=== PATIENT | female | born 1975 | race African-American/Black ===

== ENCOUNTER 2023-09-14 16:45 | Outpatient (CLI) | payer BC, SELFPAY ==
--- NOTE | 2023-09-14 | MM_ITS ---
PROCEDURE INFORMATION: Exam: MG Bilateral Screening 3D Mammography Exam date and time: 09/14/2023 4:40 PM Age: 48 years old Clinical indication: Screening. No family history of breast cancer. TECHNIQUE: Imaging protocol: Bilateral Screening tomosynthesis and 2D mammography including computer-aided detection (CAD) when performed. COMPARISON: MG MM DIGITAL EDDY SCREENING 10/09/2021 3:42 PM FINDINGS: MAMMOGRAPHY: Breast composition: The breasts are almost entirely fatty. Mass: None. Architectural distortion: None. Calcifications: No suspicious calcifications. Asymmetric density: None. Skin thickening: None. Axillary adenopathy: None. IMPRESSION: No mammographic evidence of malignancy. Annual screening is recommended unless otherwise clinically indicated. ASSESSMENT: BI-RADS Category 1: Negative
== END 2023-09-14 23:59 | disposition home or self-care (01) ==
LOC: RAD 16:46
PROVIDERS: PCP Family Medicine; Visit Provider Family Medicine
DX: Z12.31 Encounter for screening mammogram for malignant neoplasm of breast (principal)
CPT/HCPCS: 77063; 77067

== ENCOUNTER 2023-12-03 16:50 | Emergency (ER) | payer BC, SELFPAY ==
[2023-12-03 17:08] VITALS: BP 175/100; PULSE 87; RESP 16; TEMP 36.8; O2SAT 97; BMI 41.5
--- NOTE | 2023-12-03 17:31 | XR_ITS ---
PROCEDURE INFORMATION: Exam: XR Chest Exam date and time: 12/03/2023 5:38 PM Age: 48 years old Clinical indication: Pain; Other: Chest; Additional info: R chest and scap pain TECHNIQUE: Imaging protocol: Radiologic exam of the chest. Views: 2 views. COMPARISON: CR XR SCAPULA RT 12/03/2023 5:35 PM FINDINGS: Lungs: Unremarkable. No consolidation. Pleural spaces: Unremarkable. No pleural effusion. No pneumothorax. Heart/Mediastinum: Unremarkable. No cardiomegaly. Bones/joints: Unremarkable. IMPRESSION: No acute findings.
--- NOTE | 2023-12-03 17:31 | XR_ITS ---
PROCEDURE INFORMATION: Exam: XR Right Scapula Exam date and time: 12/03/2023 5:35 PM Age: 48 years old Clinical indication: Pain; Shoulder; Right; Additional info: R scap and shoulder pain TECHNIQUE: Imaging protocol: Radiologic exam of the right scapula. Complete exam. COMPARISON: No relevant prior studies available. FINDINGS: Bones/joints: Osseous alignment is normal. No acute fracture. No significant arthritic change. Soft tissues: Normal. IMPRESSION: Negative right scapula
--- NOTE | 2023-12-03 17:38 | ED_ITS ---
Discharge Plan Disposition Patient Disposition: Home, Self-Care Prescriptions Prescriptions: New methocarbamol 750 mg tablet 1,500 mg PO TID 5 Days Qty: 30 0RF Referrals Follow up/Referrals: Gladis Ba APRN [Primary Care Provider] - See instructions Activity Restrictions/Add. Instructions Additional Instructions/Restrictions: Follow-up with your family doctor regarding this visit to the emergency department as needed. Take Tylenol 1000 mg every 6 hours (4 times daily) and ibuprofen 400 mg every 6 hours (4 times daily) as needed with food and water to prevent GI upset and kidney damage. Robaxin sent to pharmacy. Robaxin can cause you to feel drowsy. Do not drive, operate heavy machinery, or engage in any activity that may make you tired, fall asleep, and because harm to yourself or others while taking this medication. Clinical Impressions Clinical Impression: Acute myofascial pain, Left shoulder pain Instructions Patient Instructions: DI for Acute Abdominal Pain Discharge ED Provider: Nathaniel Saab General Adult HPI General Chief complaint: Abdominal Pain Stated complaint: abd, back pain, RT shoulder pain Time Seen by Provider: 12/03/23 16:54 Mode of Arrival: Ambulatory Source of Information: Patient Limitations: No Limitations Description of Symptoms (Recalled from ER Triage Doc. by RN): Patient reports right shoulder and abdomen pain with diarrhea that started a couple of weeks ago. States her PCP sent her here to make sure it wasn't her appendix. History of Present Illness HPI narrative: Please note that above description of symptoms, in this electronic medical record under categorization of recalled from ER triage doctor by RN are reflective of an initial nursing assessment, however, is not reflective of my full history and physical exam that was personally taken and clarified. Consequentially, this preceding description of symptoms, which may include the patient's categorized chief complaint in the EMR, do not reflect my personal clinical impression, and the ultimate description of history of present illness and patient stated complaints should be deferred to this section of the note. Unless stated otherwise or congruent with this section of the note, additional signs, symptoms, or incongruence should be interpreted as inaccurate with my clinical impression. Related Data Previous Rx's Medication Instructions Recorded methocarbamol 750 mg tablet 1,500 mg (2 x 750 mg) PO TID 5 12/03/23 days #30 tabs Allergies Allergy/AdvReac Type Severity Reaction Status Date / Time No Known Allergies Allergy Verified 12/03/23 17:11 [facility] Disclaimer: The information contained in this section may have been updated after the patient was seen, as this information can be updated by other users. Social History Smoking Status: Current every day smoker alcohol intake: never current occupational status: employed Travel in the last 8 weeks: None ROS Obtained: Yes All systems reviewed & no additional complaints except as documented Physical Exam General General appearance: alert and in no apparent distress Head Head exam: atraumatic and normocephalic Eye Eye exam: Present normal appearance, PERRL and EOMI Neck Neck exam: Present normal inspection, full ROM and trachea midline Respiratory Respiratory exam: Present normal lung sounds bilaterally; Absent respiratory distress, wheezes, stridor, accessory muscle use or prolonged expiratory phase Cardiovascular Cardiovascular exam: Present regular rate, normal rhythm and other (Pulses equal symmetric in upper and lower extremities) Abdominal Exam Abdominal exam: Present soft; Absent distention, tenderness or pulsatile mass Extremities Exam Extremities exam: Present normal inspection, full ROM and other (Rotator cuff provocative testing negative. Patient with tenderness overlying infraspinatus. Made better with scapular retraction.); Absent edema Neurological Exam Neurological exam: Present alert, oriented X3 and CN II-XII intact; Absent motor sensory deficit Skin Skin exam: Present warm and dry; Absent diaphoresis or erythema Medical Decision Making Medical Records Medical records reviewed: Yes I reviewed the patient's medical records. [place] Inquiry Pt receiving controlled substance: No [place] was queried for this patient: No Vital Signs: 12/03/23 17:08 12/03/23 19:23 Temperature 98.2 F 98.2 F Temperature Source Oral Oral Pulse Rate 70 Pulse Rate [Radial] 87 Respiratory Rate 16 16 Blood Pressure 130/82 Blood Pressure [Right Arm] 175/100 H Blood Pressure Mean [Right Arm] 125 Blood Pressure Source Automatic Cuff Blood Pressure Source [Right Arm] Automatic Cuff Blood Pressure Position Sitting Blood Pressure Position [Right Arm] Sitting 02 Sat by Pulse Oximetry 97 Oxygen Delivery Method Room Air Room Air Lab Data Lab Results 12/03/23 17:01: Urine Color Yellow, Urine Appearance Clear, Urine pH 6.0, Ur Specific [place] >= 1.030, Urine Protein Negative, Urine Glucose (UA) Negative, Urine Ketones Negative, Urine Blood Negative, Urine Nitrate Negative, Urine Bilirubin Negative, Urine Urobilinogen 0.2, Ur Leukocyte Esterase Negative, Urine RBC None, Urine WBC None, Ur Squamous Epith Cells Occasional, Urine Bacteria None 12/03/23 17:44: WBC 7.6, RBC 3.88 L, Hgb 13.1, Hct 38.2, MCV 98.5, MCH 33.7 H, MCHC 34.2, RDW 14.3, Plt Count 226, MPV 8.4, Neut % (Auto) 59.2, Lymph % (Auto) 34.0, [place] % (Auto) 3.3, Eos % (Auto) 2.6, Baso % (Auto) 0.8, Neut # (Auto) 4.5, Lymph # (Auto) 2.6, [place] # (Auto) 0.3, Eos # (Auto) 0.2, Baso # (Auto) 0.1, ESR 31 H, Sodium 140, Potassium 4.4, Chloride 111 H, Carbon Dioxide 26, Anion Gap 7.4, BUN 19 H, Creatinine 1.00, Estimated Creat Clear 61, Estimated GFR 59, Est GFR ( Amer) 71, Glucose 113 H, Calcium 9.5, Total Bilirubin 0.4, AST 35, ALT 24, Alkaline Phosphatase 58, Troponin I < 0.01, C-Reactive Protein 3.4, Total Protein 7.5, Albumin 4.2, Globulin 3.3 H, Albumin/Globulin Ratio 1.3, Lipase 111, HCG, Quant 2 12/03/23 17:44 12/03/23 17:44 Orders (Tests/Meds): ED MEDICATIONS Discontinued Medications Generic Name Dose Route Start Last Admin Trade Name Kaela PRN Reason Stop Dose Admin Acetaminophen 1,000 mg 12/03/23 17:31 12/03/23 17:56 Acetaminophen 1,000mg/100ml Vial IV 12/03/23 17:32 1,000 mg ONCE ONE Administration Ketorolac Tromethamine 15 mg 12/03/23 17:31 12/03/23 17:56 Ketorolac 30mg/Ml Vial IV 12/03/23 17:32 15 mg ONCE ONE Administration Methocarbamol 1,500 mg 12/03/23 17:31 12/03/23 17:56 Methocarbamol 500mg Tablet PO 12/03/23 17:32 1,500 mg ONCE ONE Administration ORDERS Category Date Time Status CXR 2 view (NOT portable) [XR chest 2V] Stat Exams 12/03/23 17:31 Completed Scapula XR right [XR scapula RT] Stat Exams 12/03/23 17:31 Completed CBC w/Auto Diff [Complete Blood Count Auto Diff] Stat Lab 12/03/23 17:44 Completed CMP [Comprehensive Metabolic Panel] Stat Lab 12/03/23 17:44 Completed CRP [C-Reactive Protein] Stat Lab 12/03/23 17:44 Completed ESR [Erythrocyte Sedimentation Rate] Stat Lab 12/03/23 17:44 Completed HCG,Quantitative Stat Lab 12/03/23 17:44 Completed Lipase Stat Lab 12/03/23 17:44 Completed Trop I [Troponin I] Stat Lab 12/03/23 17:44 Completed UA [Urinalysis and Microscopic] Stat Lab 12/03/23 17:01 Completed Medical Decision Narrative: Very pleasant 48-year-old female history of 2 ectopic pregnancies, cholecystectomy, hypertension, presenting with multiple complaints. Patient states that for the last 2 weeks she has had right-sided posterior shoulder blade/shoulder pain that radiates over to her anterior shoulder, down her right side and toward her right hip. Has not had any falls, trauma, heavy lifting, does not remember what exactly caused the pain or what she was doing when it started. No weakness, numbness, tingling. No overt chest pain, no shortness of breath, no fevers or chills. She states that she is having night sweats, but no associated weight loss. She attributes this to potential menopause. Has not taken anything for the pain. Saw her family provider, family provider and recommend she come to the emergency department for further evaluation given duration of symptoms and elevated ESR and PCPs office. History was obtained via conversation with patient. On arrival, patient hemodynamically stable, alert, oriented x4, appropriate, GCS 15, moving all extremities spontaneously, pupils equal and reactive to light. Full physical exam performed and significant for tenderness over subscapularis. Provocative testing of the rotator cuff without worsening of pain, actually improvement with pain. No chest wall tenderness, abnormal cardiopulmonary findings, weakness, outward signs of injury, red hot swollen joints, or any other concerns. Very well appearing and normal physical exam. Differential includes musculoskeletal strain, pleurisy, radiculopathy, fibromyalgia, among others. Patient placed on continuous cardiac monitoring and continuous pulse ox with initial blood pressure in 75/100, heart rate 87, saturation 97% on room. Patient was given Toradol and acetaminophen for symptomatic management and correction of underlying abnormalities. Workup independently interpreted and significant for nonactionable CBC or chemistry. Kidney function normal. ESR only mildly elevated at 31, CRP negative. hCG negative, lipase negative. Urinalysis without concern for UTI also without hematuria. Troponin negative. Chest x-ray without acute cardiopulmonary airspace disease. See radiology read for full review of final results. Heart score 1. On reevaluation, patient states that her pain is much better, not currently having any symptoms. I feel is likely MSK given conservative treatment, negative workup. Because patient at baseline without signs or symptoms of clinical decompensation, deemed appropriate for discharge. Results were relayed to patient who voiced understanding and were agreeable to outpatient management and follow up. I discussed my clinical impression with patient and answered all questions. At this time, the evidence for any other entities in the differential is insufficient to warrant any further testing or ED observation. This was explained as well. Advisory was given that persistent or worsening symptoms require further evaluation. I confirmed the understanding of this discussion. Ec Teacher disclaimer Much of this encounter note is an electronic flat grinder operator spoken language to printed text. Electronic flat grinder operator of the spoken language may permit errors. Although I have reviewed the note, some errors may still exist. Critical Care Critical Care Time Critical Care Time: No
--- NOTE | 2023-12-03 17:44 | PC.NURSE ---
PT TO XR
[2023-12-03 17:47] LABS: Microscopic, Urine URINE MICROSCOPIC (MICROSCOPIC)
[2023-12-03 17:56] LABS: Appearance,Urine CLEAR (Clear); Bilirubin,Urine Negative (Negative); Blood, Urine Negative (Negative); Color,Urine YELLOW (Yellow); Glucose,Urine (UA) Negative (Negative); Ketones,Urine Negative (Negative); Leukocyte Esterase,Urine Negative (Negative); Nitrate,Urine Negative (Negative); Protein,Urine Negative (Negative); Specific Gravity, Urine >= 1.030 (1.005-1.030); Urobilinogen,Urine 0.2 EU/dl (0.2)
[2023-12-03] MEDS: KETOROLAC 30MG/ML VIAL 15 MG IV (17:56)
[2023-12-03] MEDS: ACETAMINOPHEN 1,000MG/100ML VIAL 1000 MG IV (17:56)
[2023-12-03] MEDS: METHOCARBAMOL 500MG TABLET 1500 MG PO (17:56)
[2023-12-03 17:57] LABS: Basophils # 0.1 K/mm3 (0-0.2); Basophils % 0.8 % (0.1-2.0); Eosinophils # 0.2 K/mm3 (0.0-0.4); Eosinophils % 2.6 % (0.1-12.0); Hematocrit 38.2 % (37.0-47.0); Hemoglobin 13.1 g/dL (12.2-16.2); Lymphocytes # 2.6 K/mm3 (0.7-4.5); Mean Corpuscular HGB Conc 34.2 g/dL (31.8-35.4); Mean Corpuscular Hemoglobin 33.7 pg (27.0-31.2); Mean Corpuscular Volume 98.5 fl (81-99); Mean Platelet Volume 8.4 fl (7.4-10.4); Monocytes # 0.3 K/mm3 (0.1-1.0); Monocytes % 3.3 % (1.7-9.3); Neutrophils # 4.5 K/mm3 (1.8-7.8); Neutrophils % 59.2 % (37.0-80.0); Platelet Count 226 K/mm3 (142-424); Red Blood Count 3.88 M/mm3 (4.20-5.40); Red Cell Distribution Width 14.3 % (11.5-17.5); White Blood Count 7.6 K/mm3 (4.8-10.8)
[2023-12-03 18:04] LABS: Chloride 111 mmol/L (98-107); Potassium 4.4 mmoL/L (3.5-5.1); Sodium 140 mmol/L (136-145)
[2023-12-03 18:05] LABS: Squamous Epithelial Cell,Urine Occasional #/hpf (0-5)
[2023-12-03 18:05] LABS: Alanine Aminotransferase 24 U/L (12-78); Aspartate Amino Transferase 35 U/L (14-36); Blood Urea Nitrogen 19 mg/dl (7-17); Creatinine Clearance Estimated 61 mL/min (50-200); Estimated Glomerular Filt Rate 59 ml/min (>60); GFR (African American) 71 ML/MIN (>60)
[2023-12-03 18:06] LABS: Albumin Level 4.2 g/dl (3.5-5.0); Albumin/Globulin Ratio 1.3 (1.1-1.8); Alkaline Phosphatase 58 U/L (38-126); Anion Gap 7.4 mEq/L (5-15); Bilirubin,Total 0.4 mg/dl (0.2-1.3); Calcium 9.5 mg/dl (8.4-10.2); Carbon Dioxide 26 mmol/L (22.0-30.0); Globulin 3.3 g/dL (1.3-3.2); Glucose 113 mg/dl (74-100); Lipase 111 U/L (23-300); Total Protein,Serum 7.5 g/dl (6.3-8.2)
[2023-12-03 18:12] LABS: C-Reactive Protein 3.4 mg/L (0-4)
--- NOTE | 2023-12-03 18:16 | PC.NURSE ---
ROUNDED ON PT, REPORTS FEELING BETTER. CALL LIGHT WITHIN REACH. NO NEEDS AT THIS TIME
[2023-12-03 18:37] LABS: HCG,Quantitative 2 mIU/ml (0-5.42)
[2023-12-03 18:53] LABS: Erythrocyte Sedimentation Rate 31 mm/hr (0-20)
[2023-12-03 19:23] VITALS: BP 130/82; PULSE 70; RESP 16; TEMP 36.8; O2SAT 99
[2023-12-03 19:26] LABS: Troponin I < 0.01 ng/ml (0.00-0.034)
== END 2023-12-03 19:25 | disposition home or self-care (01) ==
PROVIDERS: Emergency Provider Emergency Medicine; PCP Family Medicine
DX: M25.511 Pain in right shoulder (principal); R10.9 Unspecified abdominal pain; M79.18 Myalgia, other site; F17.210 Nicotine dependence, cigarettes, uncomplicated
CPT/HCPCS: 71046; 73010; 80053; 81001; 83690; 84484; 84702; 85025; 85651; 86140; 96374; 96375; 99284; J0131; J1885

== ENCOUNTER 2024-06-20 10:28 | Outpatient (CLI) | payer BC, SELFPAY | END 2024-06-20 23:59 | disposition home or self-care (01) | LOC: LAB.DROPOF 06-21 10:15 | PROVIDERS: PCP Student in an Organized Health Care Education/Training Program; Visit Provider Student in an Organized Health Care Education/Training Program | DX: R51.9 Headache, unspecified (principal) | CPT/HCPCS: 87635 ==